=== PATIENT | female | born 1995 | race Caucasian/White ===

== ENCOUNTER 2017-05-30 14:27 | Emergency (ER) | payer BC ==
[~2017-05-30] VITALS: Ht 170.2 cm; Wt 103.5 kg
[~2017-05-30 14:27] MED LIST: AMOXICILLIN500 MG PO; LEVAQUIN500 MG PO; NAPROSYN500 MG PO; NORCO 5/3251 TABLET PO
[2017-05-30] MEDS ORDERED: SKELAXIN800 MG PO (17:23)
[2017-05-30] MEDS ORDERED: MEDROL DOSEPAK4 MG PO (17:23)
[2017-05-30] MEDS ORDERED: MOTRIN600 MG PO (17:23)
[2017-05-30 17:34] VITALS: BP 122/80
== END 2017-05-30 17:35 | disposition home or self-care (01) ==
LOC: EME 14:27
DX: M54.16 Radiculopathy, lumbar region (principal); Z88.1 Allergy status to other antibiotic agents
CPT/HCPCS: 72100; 99281; 99284; J1885